=== PATIENT | male | born 1995 | race Caucasian/White ===

== ENCOUNTER 2018-06-05 21:27 | Emergency (ER) | payer OTHER ==
[~2018-06-05] VITALS: Ht 175.3 cm; Wt 95.5 kg
[2018-06-05 21:36] VITALS: BP 153/66; TEMP 98.5
[2018-06-05] MEDS ORDERED: CEPHALEXIN500 M1 PO (22:56)
[2018-06-05 23:14] VITALS: PULSE 90
== END 2018-06-05 23:15 | disposition home or self-care (01) ==
LOC: COL.ER 21:27
DX: T88.1XXA Other complications following immunization, not elsewhere classified, initial encounter (principal); J02.9 Acute pharyngitis, unspecified

== ENCOUNTER 2019-01-12 19:32 | Emergency (ER) | payer OTHER ==
[~2019-01-12] VITALS: Ht 149.9 cm; Wt 93.2 kg
[~2019-01-12 19:32] MED LIST: CEPHALEXIN500 M1 PO
[2019-01-12 19:36] VITALS: BP 124/83; TEMP 98.5
[2019-01-12] MEDS ORDERED: FLEXERIL 1010 MG/TAB PO (23:51)
[2019-01-13 00:17] VITALS: PULSE 80
== END 2019-01-13 00:18 | disposition home or self-care (01) ==
LOC: COL.ER 19:32
DX: S09.90XA Unspecified injury of head, initial encounter (principal); S16.1XXA Strain of muscle, fascia and tendon at neck level, initial encounter; J45.909 Unspecified asthma, uncomplicated; R40.2410 Glasgow coma scale score 13-15, unspecified time; V43.52XA Car driver injured in collision with other type car in traffic accident, initial encounter
CPT/HCPCS: J1885